=== PATIENT | female | born 1970 | race Caucasian/White ===

== ENCOUNTER 2020-08-20 15:04 | Emergency (ER) | payer MEDICARE, OTHER ==
[2020-08-20 16:24] LABS: HEMOGLOBIN 13.9 gm/dl (12.3-15.3); RED BLOOD COUNT 3.59 M/UL (4.00-5.10)
[2020-08-20 16:51] LABS: BUN/CREATININE RATIO 10 (0-10)
[2020-08-20 19:33] LABS: HEMOGLOBIN 12.4 gm/dl (12.3-15.3); RED BLOOD COUNT 3.25 M/UL (4.00-5.10); WHITE BLOOD COUNT 5.8 K/UL (4.5-11.0)
[2020-08-20 20:20] LABS: BUN/CREATININE RATIO 11 (0-10)
[2020-08-20] MEDS ORDERED: AUGMENTIN 875-1 EACH PO (21:09)
[2020-08-20] MEDS ORDERED: PHENERGAN 50 MG50 MG PR (21:09)
[2020-09-02] MEDS ORDERED: AMLODIPINE BESYL5 MG PO (08:25)
[2020-09-02] MEDS ORDERED: LEVOTHYROXINE112 MC1 PO (08:26)
[2020-09-02] MEDS ORDERED: PROTONIX 40 MG40 M1 PO (08:26)
[2020-09-02] MEDS ORDERED: LOPRESSOR100 MG PO (08:27)
[2020-09-02] MEDS ORDERED: ARICEPT10 MG PO (08:28)
[2020-09-02] MEDS ORDERED: SINEMET 25-1001 EACH PO (08:30)
[2020-09-02] MEDS ORDERED: ZOFRAN ODT 4 MG4 MG PO (08:30)
[2020-09-02] MEDS ORDERED: CLONAZEPAM1 MG PO (08:31)
[2020-09-02] MEDS ORDERED: DICYCLOMINE HCL20 MG PO (08:32)
[2020-09-02] MEDS ORDERED: VITAMIN B-1100 MG/ML IM (08:32)
[2020-09-02] MEDS ORDERED: MAG OX PO (08:32)
[2020-09-02] MEDS ORDERED: PRENATAL VITAM1 EAC6 PO (08:33)
== END 2020-08-20 21:50 | disposition home or self-care (01) ==
LOC: ER1 15:04
PROVIDERS: Emergency Medicine; Physician Assistant
DX: K52.9 Noninfective gastroenteritis and colitis, unspecified (principal); F17.200 Nicotine dependence, unspecified, uncomplicated; E07.9 Disorder of thyroid, unspecified
CPT/HCPCS: 80053; 81001; 83690; 83735; 84439; 84443; 85025; 96372; 96374; 96375; 99284; G0480; J2060; J2550; J3420; Q9967

== ENCOUNTER → 2020-09-02 | Day surgery (SDC) | payer MEDICARE, OTHER ==
[~2020-09-02] MED LIST: AMLODIPINE BESYL5 MG PO; ARICEPT10 MG PO; AUGMENTIN 875-1 EACH PO; CLONAZEPAM1 MG PO; DICYCLOMINE HCL20 MG PO; LEVOTHYROXINE112 MC1 PO; LOPRESSOR100 MG PO; MAG OX PO; PHENERGAN 50 MG50 MG PR; PRENATAL VITAM1 EAC6 PO; PROTONIX 40 MG40 M1 PO; SINEMET 25-1001 EACH PO; VITAMIN B-1100 MG/ML IM; ZOFRAN ODT 4 MG4 MG PO
== END | disposition home or self-care (01) ==
LOC: OR 07:09
PROVIDERS: Internal Medicine Gastroenterology
PROC: 0DB68ZX Excision of Stomach, Via Natural or Artificial Opening Endoscopic, Diagnostic (ICD-10-PCS; 2020-09-02)
PROC: 0DBK8ZX Excision of Ascending Colon, Via Natural or Artificial Opening Endoscopic, Diagnostic (ICD-10-PCS; 2020-09-02)
PROC: 0DBE8ZX Excision of Large Intestine, Via Natural or Artificial Opening Endoscopic, Diagnostic (ICD-10-PCS; 2020-09-02)
PROC: 0DBL8ZX Excision of Transverse Colon, Via Natural or Artificial Opening Endoscopic, Diagnostic (ICD-10-PCS; 2020-09-02)
PROC: 0DBN8ZX Excision of Sigmoid Colon, Via Natural or Artificial Opening Endoscopic, Diagnostic (ICD-10-PCS; 2020-09-02)
PROC: 0DBP8ZX Excision of Rectum, Via Natural or Artificial Opening Endoscopic, Diagnostic (ICD-10-PCS; 2020-09-02)
PROC: 0DBB8ZX Excision of Ileum, Via Natural or Artificial Opening Endoscopic, Diagnostic (ICD-10-PCS; 2020-09-02)
PROC: 0DBH8ZX Excision of Cecum, Via Natural or Artificial Opening Endoscopic, Diagnostic (ICD-10-PCS; 2020-09-02)
PROC: 0DB98ZX Excision of Duodenum, Via Natural or Artificial Opening Endoscopic, Diagnostic (ICD-10-PCS; principal; 2020-09-02 11:35)
PROC: 0DB78ZX Excision of Stomach, Pylorus, Via Natural or Artificial Opening Endoscopic, Diagnostic (ICD-10-PCS; 2020-09-02 11:35)
DX: K31.89 Other diseases of stomach and duodenum (principal); K63.5 Polyp of colon; K64.1 Second degree hemorrhoids; K64.4 Residual hemorrhoidal skin tags; K57.30 Diverticulosis of large intestine without perforation or abscess without bleeding; K21.9 Gastro-esophageal reflux disease without esophagitis; D12.3 Benign neoplasm of transverse colon; D12.5 Benign neoplasm of sigmoid colon; D12.8 Benign neoplasm of rectum; I10 Essential (primary) hypertension; E89.0 Postprocedural hypothyroidism; J44.9 Chronic obstructive pulmonary disease, unspecified; F17.210 Nicotine dependence, cigarettes, uncomplicated; Z20.822 Contact with and (suspected) exposure to COVID-19; Z88.8 Allergy status to other drugs, medicaments and biological substances; Z79.2 Long term (current) use of antibiotics; Z79.899 Other long term (current) drug therapy; Z90.49 Acquired absence of other specified parts of digestive tract
CPT/HCPCS: J2001; J2704; J7040

== ENCOUNTER → 2020-10-22 | Outpatient (CLI) | payer MEDICARE | LOC: NM 10-03 09:00 | DX: R93.5 Abnormal findings on diagnostic imaging of other abdominal regions, including retroperitoneum (principal); R11.2 Nausea with vomiting, unspecified | CPT/HCPCS: 78264; A9541 ==

== ENCOUNTER → 2020-12-17 | Outpatient (CLI) | payer MEDICARE | LOC: MRI 09-24 08:30 | DX: R93.5 Abnormal findings on diagnostic imaging of other abdominal regions, including retroperitoneum (principal); K68.9 Other disorders of retroperitoneum | CPT/HCPCS: 36415; 74183; 80076; 82565; 83036; 84520; A9577 ==

== ENCOUNTER → 2021-01-26 | Outpatient (CLI) | payer MEDICARE ==
[2021-01-26 15:45] LABS: HEMOGLOBIN 14.7 gm/dl (12.3-15.3); RED BLOOD COUNT 3.86 M/UL (4.00-5.10); WHITE BLOOD COUNT 6.9 K/UL (4.5-11.0)
== END ==
LOC: LAB 15:11
PROVIDERS: Internal Medicine Gastroenterology
DX: R93.5 Abnormal findings on diagnostic imaging of other abdominal regions, including retroperitoneum (principal); R10.84 Generalized abdominal pain
CPT/HCPCS: 36415; 85027; 85610; 85730; U0003

== ENCOUNTER → 2021-01-28 | Outpatient (CLI) | payer MEDICARE | LOC: CT 08:10 | DX: R93.5 Abnormal findings on diagnostic imaging of other abdominal regions, including retroperitoneum (principal); R10.84 Generalized abdominal pain; K76.0 Fatty (change of) liver, not elsewhere classified | CPT/HCPCS: 74150 ==

== ENCOUNTER → 2021-05-05 | Outpatient (CLI) | payer MEDICARE ==
[2021-05-06 12:15] LABS: THYROXINE (T4) 4.2 ug/dL (4.5-12.0)
[2021-05-06 14:15] LABS: HEMATOCRIT 40.3 % (34.0-46.6)
== END ==
LOC: CT 09:20
PROVIDERS: Internal Medicine Hematology & Oncology
DX: R93.5 Abnormal findings on diagnostic imaging of other abdominal regions, including retroperitoneum (principal); D51.8 Other vitamin B12 deficiency anemias; R12 Heartburn; R63.4 Abnormal weight loss; N28.9 Disorder of kidney and ureter, unspecified
CPT/HCPCS: 36415; 82565; 82607; 82747; 83615; 83921; 84436; 84439; 84443; Q9967